=== PATIENT | female | born 1960 | race Caucasian/White ===

== ENCOUNTER → 2016-06-23 | Outpatient (CLI) | payer OTHER ==
--- NOTE | 2016-06-23 14:40 | MA ---
Screening Digital Mammogram Clinical Indications: Routine screening. Technique: Standard cephalocaudal and mediolateral oblique projections are obtained. This examinati on is processed by the [employer] computer aided detection system. Comparison: June 2015, September 2014, August 2013, June 2012 and July 2011 Breast density: B; There are scattered fibroglandular densities. Findings: CAD was reviewed. There is an enlarging density in the inner right breast seen only on the cc view. The remainder of the right and left breast are stable.. Impression: Enlarging nodule in the right breast. BI-RADS 0: additional imaging required right breast. Recommendation: Diagnostic mammogram followed by ultrasound.. Please fax a written or electronic order for a diagnostic mammogram and ultrasound to [phone]. [facility] will send a result letter to the patient. Negative mammography should not preclude additional workup of a clinically suspicious finding. The patient's information is entered into a reminder system with a target due date for her next mammo gram.
== END ==
LOC: BRMIMAGING 13:15
DX: Z12.31 Encounter for screening mammogram for malignant neoplasm of breast (principal)
CPT/HCPCS: G0202

== ENCOUNTER → 2016-06-29 | Outpatient (CLI) | payer OTHER ==
--- NOTE | 2016-06-29 11:48 | MA ---
Diagnostic Digital Right Mammogram graduate History: Nodule inner right breast. Comparison: Screening mammogram June 23, 2016. Technique: A true lateral view and 3 spot films of the right breast. Density: B Findings: A nodule persists in the inner right breast. It is likely at the 3 o'clock radial. Not all margins are well-defined on the mammography. Not all margins are well-defined. Impression: Further imaging with ultrasound in the right breast. BI-RADS 0. Additional imaging inner right breast, which will be performed later today
--- NOTE | 2016-06-29 12:41 | US ---
Right Breast Ultrasound History: Nodular density seen on mammography Comparison diagnostic mammogram earlier today, screening mammogram June 23, 2015 and mammograms ba ck to 2010 Technique: I first performed a directed physical examination. This was followed by ultrasound exam with a high frequency linear transducer. Findings: Physical examination of the inner right breast is negative. Ultrasound is negative. No rin d or cystic nodules identified in the inner right breast. The nodular density may have been present a s far back as mammograms dated 2010. There is a similar nipple position in 2011 Impression: Probably benign tomographic density inner right breast . Recommendation: Six-month follow-up right breast mammogram to ensure stability. BI-RADS 3. Probably benign. Results and recommendation were discussed in detail with the patient, who is in agreement with the pl an.
== END ==
LOC: FIMAGING 10:53
PROVIDERS: ATTEND Family Medicine
DX: Z12.39 Encounter for other screening for malignant neoplasm of breast (principal); R92.8 Other abnormal and inconclusive findings on diagnostic imaging of breast
CPT/HCPCS: G0206

== ENCOUNTER → 2016-12-25 | Outpatient (CLI) | payer OTHER | LOC: BRMIMAGING 08:48 | PROVIDERS: ATTEND Family Medicine | DX: R92.8 Other abnormal and inconclusive findings on diagnostic imaging of breast (principal); Z80.3 Family history of malignant neoplasm of breast | CPT/HCPCS: G0206 ==

== ENCOUNTER → 2017-05-22 | Outpatient (CLI) | payer OTHER | LOC: BRMIMAGING 08:20 | PROVIDERS: ATTEND Family Medicine | DX: Z12.31 Encounter for screening mammogram for malignant neoplasm of breast (principal); Z80.3 Family history of malignant neoplasm of breast ==

== ENCOUNTER → 2018-10-23 | Outpatient (CLI) | payer OTHER | LOC: BRMIMAGING 08:20 ==